=== PATIENT | male | born 1990 | race Caucasian/White ===

== ENCOUNTER 2017-11-14 14:38 | Emergency (ER) | payer MEDICAID ==
[~2017-11-14] VITALS: Ht 172.7 cm; Wt 64.0 kg
[2017-11-14 15:13] VITALS: BP 131/79
[2017-11-14] MEDS ORDERED: CYCL5TAB14 PO (16:51)
[2017-11-14] MEDS ORDERED: DEXA2TAB PO (16:51)
== END 2017-11-14 17:04 | disposition home or self-care (01) ==
LOC: ER 14:39
DX: M54.5 Low back pain (principal); G89.29 Other chronic pain; Z79.899 Other long term (current) drug therapy
CPT/HCPCS: 72100; 99284

== ENCOUNTER 2023-12-04 17:26 | Emergency (ER) | payer BC, MEDICAID, OTHER ==
[~2023-12-04] VITALS: Ht 175.3 cm; Wt 65.2 kg
[~2023-12-04 17:26] MED LIST: CYCL5TAB14 PO; DEXA2TAB PO
[2023-12-04 17:30] VITALS: BP 148/85; PULSE 107; TEMP 98; O2SAT 99
[2023-12-04] MEDS ORDERED: HYDR-3965 PO (18:25)
[2023-12-04 18:31] VITALS: RESP 18
[2023-12-04] MEDS: HYDROcodone/acetaminophen 10/325mg tab PO ONE (18:31)
== END 2023-12-04 19:11 | disposition home or self-care (01) ==
LOC: ER 17:27
DX: M25.511 Pain in right shoulder (principal); G89.29 Other chronic pain; Z72.89 Other problems related to lifestyle; Z79.899 Other long term (current) drug therapy; V86.95XA Unspecified occupant of 3- or 4- wheeled all-terrain vehicle (ATV) injured in nontraffic accident, initial encounter; Y93.89 Activity, other specified; Y92.89 Other specified places as the place of occurrence of the external cause; Y99.8 Other external cause status
CPT/HCPCS: 73030; 99283; A4565